=== PATIENT | male | born 1985 | race Caucasian/White ===

== ENCOUNTER 2021-01-28 04:46 | Emergency (ER) | payer OTHER ==
[~2021-01-28] VITALS: Ht 185.4 cm; Wt 107.2 kg
[2021-01-28] MEDS ORDERED: HYDROCODON-ACE1 EA10 PO (06:07)
[2021-01-28] MEDS ORDERED: BACTRIM DS TAB1 EACH PO (06:07)
[2021-01-28] MEDS ORDERED: CEPHALEXIN500 MG PO (06:07)
== END 2021-01-28 06:21 | disposition home or self-care (01) ==
LOC: ED 04:46
DX: S61.203A Unspecified open wound of left middle finger without damage to nail, initial encounter (principal); L08.9 Local infection of the skin and subcutaneous tissue, unspecified; W26.8XXA Contact with other sharp object(s), not elsewhere classified, initial encounter
CPT/HCPCS: 10120; 73140; 99283-25